=== PATIENT | male | born 1955 | race Caucasian/White ===

== ENCOUNTER → 2016-07-02 | Outpatient (CLI) | payer MEDICARE ==
[~2016-07-02] MED LIST: AMARYL2 MG PO; AMLODIPINE10 MG PO; ASPIRIN CHEWABL81 MG PO; AVODART0.5 MG PO; Amaryl2 MG PO; B12,B-12,B 12500 MC1 PO; CALCIUM + D 5001 TAB PO; CALCIUM 600600 MG PO; CALCIUM WITH D1 CTB PO; CELLCEPT250 MG PO; CLEOCIN150 MG PO; COLACE100 MG PO; CORDROL20 MG; COUMADIN2 MG PO; COUMADIN2.5 M1 PO; COUMADIN3 M1 PO; COUMADIN5 M2 PO; Cyclobenzaprine10 MG PO; D3-5050000 IU PO; DAYPRO600 M1 PO; DELTASONE10 MG PO; DELTASONE20 MG PO; DELTASONE5 MG PO; ELITE MAGNESIUM1 TAB PO; FE-TABS325 MG PO; FEOSOL300 MG PO; FEOSOL325 MG PO; FERROUS SULFAT325 MG PO; FINASTERIDE5 MG PO; FLOMAX0.4 MG PO; FLUCONAZOLE100 MG PO; GABAPENTIN100 M2 PO; HYDROCODONE BIT1 T11 PO; IBUPROFEN200 M2 PO; IMMURAN; IMURAN50 MG PO; IRON325 M1 PO; IRON65 M1 PO; IRON65 MG PO; LISINOPRIL5 MG PO; MAG-OX 400400 MG PO; METOPROLOL SR50 MG PO; MULTIPLE VITAMI1 CAP PO; NORCO 5-325 TA1 EACH PO; OMEPRAZOLE10 MG PO; ORASONE PO; ORASONE10 MG PO; PREDNISONE10 MG PO; PREDNISONE20 MG PO; ROBAXIN750 MG PO; SEPTRA DS 800 M1 TAB PO; TACROLIMUS1 M1 PO; TRAMADOL HCL50 MG PO; TRAMADOL50 MG PO; TYLENOL W/CODEI1 TA2 PO; ULTRAM100 MG PO; VALCYTE450 MG PO; VITAMIN D1000 IU PO; ZOFRAN4 MG PO
[2016-07-02 07:27] LABS: HEMATOCRIT 30.1 % (42.0-52.0); HEMOGLOBIN 9.3 g/dl (14.0-18.0); MEAN CELL VOLUME 90.7 fl (80.0-94.0); MEAN CORPUSCULAR HGB CONC 30.9 g/dl (33.0-37.0); PLATELET COUNT AUTOMATED 190 10*3/uL (130-400); RED BLOOD COUNT 3.32 10*6/uL (4.50-5.90); RED CELL DISTRI WIDTH 16.2 % (0-14.5); WHITE BLOOD COUNT 18.1 10*3/uL (4.8-10.8)
[2016-07-02 07:50] LABS: ALBUMIN 2.7 gm/dl (3.1-4.5); MAGNESIUM 1.6 mg/dL (1.5-2.1); PHOSPHOROUS 1.3 mg/dL (2.5-4.9); POTASSIUM 4.6 mmol/L (3.5-5.1)
[2016-07-02 08:40] LABS: LYMPHOCYTE # 0.5 10*3/uL (1.3-4.4); METAMYELOCYTES 3 % (0-0); MONOCYTE # 1.1 10*3/uL (0.1-1.0); MYELOCYTES 5 % (0-0); NEUTROPHILS 83 % (47-73); TOTAL CELLS COUNTED 100 #CELLS
[2016-07-02 08:41] LABS: PLATELET SUFFICIENCY NORMAL (NORMAL); POLYCHROMASIA SLIGHT
== END | disposition home or self-care (01) ==
LOC: LAB 07:04
PROVIDERS: Internal Medicine Nephrology
DX: Z41.8 Encounter for other procedures for purposes other than remedying health state (principal); Z48.298 Encounter for aftercare following other organ transplant; Z94.0 Kidney transplant status; N25.81 Secondary hyperparathyroidism of renal origin; E55.9 Vitamin D deficiency, unspecified; E78.5 Hyperlipidemia, unspecified

== ENCOUNTER → 2016-07-05 | Outpatient (CLI) | payer MEDICARE ==
[2016-07-05 07:22] LABS: HEMATOCRIT 30.7 % (42.0-52.0); HEMOGLOBIN 9.5 g/dl (14.0-18.0); MEAN CELL VOLUME 91.1 fl (80.0-94.0); MEAN CORPUSCULAR HGB 28.2 pg (27.0-31.0); MEAN CORPUSCULAR HGB CONC 30.9 g/dl (33.0-37.0); MEAN PLATELET VOLUME 8.9 fl (9.6-12.3); PLATELET COUNT AUTOMATED 157 10*3/uL (130-400); RED BLOOD COUNT 3.37 10*6/uL (4.50-5.90); WHITE BLOOD COUNT 14.9 10*3/uL (4.8-10.8)
[2016-07-05 07:38] LABS: LYMPHOCYTE # 0.6 10*3/uL (1.3-4.4); METAMYELOCYTES 1 % (0-0); MONOCYTE # 0.9 10*3/uL (0.1-1.0); MYELOCYTES 1 % (0-0); NEUTROPHIL # 13.1 10*3/uL (2.3-7.9); NEUTROPHILS 88 % (47-73); TOTAL CELLS COUNTED 100 #CELLS
[2016-07-05 07:39] LABS: PLATELET SUFFICIENCY NORMAL (NORMAL)
[2016-07-05 07:40] LABS: ALBUMIN 2.8 gm/dl (3.1-4.5); MAGNESIUM 1.6 mg/dL (1.5-2.1); PHOSPHOROUS 1.3 mg/dL (2.5-4.9); POLYCHROMASIA SLIGHT
== END | disposition home or self-care (01) ==
LOC: LAB 06:55
PROVIDERS: Internal Medicine Nephrology
DX: Z41.8 Encounter for other procedures for purposes other than remedying health state (principal); Z48.298 Encounter for aftercare following other organ transplant; Z94.0 Kidney transplant status; N25.81 Secondary hyperparathyroidism of renal origin; E55.9 Vitamin D deficiency, unspecified; E78.5 Hyperlipidemia, unspecified

== ENCOUNTER → 2016-07-12 | Outpatient (CLI) | payer MEDICARE ==
[2016-07-12 07:12] LABS: BASO % 0.1 % (0.0-1.0); EOS % 0.6 % (1.0-4.0); HEMATOCRIT 32.2 % (42.0-52.0); HEMOGLOBIN 9.8 g/dl (14.0-18.0); IG # 0.2 10*3/uL (0.0-0.1); LYMPH # 0.1 10*3/uL (1.3-4.4); LYMPH % 1.3 % (27.0-41.0); MEAN CELL VOLUME 93.6 fl (80.0-94.0); MEAN CORPUSCULAR HGB 28.5 pg (27.0-31.0); MEAN CORPUSCULAR HGB CONC 30.4 g/dl (33.0-37.0); MEAN PLATELET VOLUME 9.3 fl (9.6-12.3); MONO # 0.6 10*3/uL (0.1-1.0); MONO % 8.2 % (3.0-9.0); NEUT # 5.8 10*3/uL (2.3-7.9); NEUT % 86.8 % (47.0-73.0); PLATELET COUNT AUTOMATED 82 10*3/uL (130-400); RED BLOOD COUNT 3.44 10*6/uL (4.50-5.90); WHITE BLOOD COUNT 6.7 10*3/uL (4.8-10.8)
[2016-07-12 07:26] LABS: ALBUMIN 2.9 gm/dl (3.1-4.5); ALKALINE PHOSPHATASE 86 U/L (45-117); BILIRUBIN, DIRECT < 0.1 mg/dL (0.0-0.2); BILIRUBIN, TOTAL 0.3 mg/dl (0.2-1.0); BUN 32 mg/dl (7-24); CARBON DIOXIDE 20 mmol/L (21-32); CHLORIDE 111 mmol/L (98-107); EST GLOM FILT AFRICAN AMERICAN 57 ml/min; GLUCOSE 90 mg/dL (65-99); MAGNESIUM 1.5 mg/dL (1.5-2.1); PHOSPHOROUS 1.5 mg/dL (2.5-4.9); POTASSIUM 5.1 mmol/L (3.5-5.1); SGOT/AST 10 IU/L (3-35); SGPT/ALT 26 U/L (12-78); SODIUM 138 mmol/L (136-145); TOTAL PROTEIN 5.8 gm/dL (6.4-8.2)
== END | disposition home or self-care (01) ==
LOC: LAB 03:00
PROVIDERS: Internal Medicine Nephrology
DX: Z41.8 Encounter for other procedures for purposes other than remedying health state (principal); Z48.298 Encounter for aftercare following other organ transplant; N25.81 Secondary hyperparathyroidism of renal origin; E55.9 Vitamin D deficiency, unspecified; E78.5 Hyperlipidemia, unspecified; Z94.0 Kidney transplant status

== ENCOUNTER → 2016-08-30 | Outpatient (CLI) | payer MEDICARE ==
[2016-08-30 07:16] LABS: HEMATOCRIT 34.7 % (42.0-52.0); HEMOGLOBIN 10.8 g/dl (14.0-18.0); MEAN CELL VOLUME 91.8 fl (80.0-94.0); MEAN CORPUSCULAR HGB 28.6 pg (27.0-31.0); MEAN CORPUSCULAR HGB CONC 31.1 g/dl (33.0-37.0); MEAN PLATELET VOLUME 9.7 fl (9.6-12.3); PLATELET COUNT AUTOMATED 116 10*3/uL (130-400); RED BLOOD COUNT 3.78 10*6/uL (4.50-5.90); RED CELL DISTRI WIDTH 15.9 % (0-14.5); WHITE BLOOD COUNT 3.3 10*3/uL (4.8-10.8)
[2016-08-30 07:29] LABS: ALBUMIN 3.2 gm/dl (3.1-4.5); BUN 31 mg/dl (7-24); CARBON DIOXIDE 21 mmol/L (21-32); CHLORIDE 109 mmol/L (98-107); EST GLOM FILT AFRICAN AMERICAN > 60 ml/min; GLUCOSE 96 mg/dL (65-99); MAGNESIUM 1.9 mg/dL (1.5-2.1); POTASSIUM 4.4 mmol/L (3.5-5.1); SODIUM 141 mmol/L (136-145)
[2016-08-30 07:30] LABS: PHOSPHOROUS 1.7 mg/dL (2.5-4.9)
[2016-08-30 07:40] LABS: BASOPHILS 1 % (0-1); EOSINOPHILS 1 % (1-4); LYMPHOCYTE # 0.3 10*3/uL (1.3-4.4); METAMYELOCYTES 6 % (0-0); MONOCYTE # 0.2 10*3/uL (0.1-1.0); MYELOCYTES 12 % (0-0); NEUTROPHIL # 2.1 10*3/uL (2.3-7.9); NEUTROPHILS 65 % (47-73); OVALOCYTES FEW; PLATELET SUFFICIENCY LOW (NORMAL); TEAR DROP CELLS FEW; TOTAL CELLS COUNTED 100 #CELLS
== END | disposition home or self-care (01) ==
LOC: LAB 02:12
PROVIDERS: Internal Medicine Nephrology
DX: Z41.8 Encounter for other procedures for purposes other than remedying health state (principal); Z48.298 Encounter for aftercare following other organ transplant; N25.81 Secondary hyperparathyroidism of renal origin; E78.5 Hyperlipidemia, unspecified; E55.9 Vitamin D deficiency, unspecified; Z94.0 Kidney transplant status

== ENCOUNTER → 2016-09-03 | Outpatient (CLI) | payer MEDICARE ==
[2016-09-03 07:16] LABS: HEMOGLOBIN 10.5 g/dl (14.0-18.0); MEAN CELL VOLUME 90.4 fl (80.0-94.0); MEAN CORPUSCULAR HGB 28.8 pg (27.0-31.0); MEAN CORPUSCULAR HGB CONC 31.8 g/dl (33.0-37.0); MEAN PLATELET VOLUME 9.6 fl (9.6-12.3); PLATELET COUNT AUTOMATED 116 10*3/uL (130-400); RED BLOOD COUNT 3.65 10*6/uL (4.50-5.90); RED CELL DISTRI WIDTH 15.5 % (0-14.5); WHITE BLOOD COUNT 2.1 10*3/uL (4.8-10.8)
[2016-09-03 07:31] LABS: ALBUMIN 3.1 gm/dl (3.1-4.5); ALKALINE PHOSPHATASE 87 U/L (45-117); BILIRUBIN, DIRECT < 0.1 mg/dL (0.0-0.2); BILIRUBIN, TOTAL 0.3 mg/dl (0.2-1.0); BUN 28 mg/dl (7-24); CARBON DIOXIDE 22 mmol/L (21-32); CHLORIDE 112 mmol/L (98-107); EST GLOM FILT AFRICAN AMERICAN > 60 ml/min; GLUCOSE 89 mg/dL (65-99); PHOSPHOROUS 2.5 mg/dL (2.5-4.9); POTASSIUM 4.3 mmol/L (3.5-5.1); SGOT/AST 9 IU/L (3-35); SGPT/ALT 22 U/L (12-78); SODIUM 142 mmol/L (136-145)
[2016-09-03 07:35] LABS: BASOPHILS 2 % (0-1); EOSINOPHILS 1 % (1-4); LYMPHOCYTE # 0.5 10*3/uL (1.3-4.4); METAMYELOCYTES 10 % (0-0); MONOCYTE # 0.3 10*3/uL (0.1-1.0); MYELOCYTES 12 % (0-0); NEUTROPHIL # 0.8 10*3/uL (2.3-7.9); NEUTROPHILS 36 % (47-73); PLATELET SUFFICIENCY LOW (NORMAL); TEAR DROP CELLS FEW; TOTAL CELLS COUNTED 100 #CELLS
== END | disposition home or self-care (01) ==
LOC: LAB 06:59
PROVIDERS: Internal Medicine Nephrology
DX: Z41.8 Encounter for other procedures for purposes other than remedying health state (principal); Z48.298 Encounter for aftercare following other organ transplant; N25.81 Secondary hyperparathyroidism of renal origin; E55.9 Vitamin D deficiency, unspecified; E78.5 Hyperlipidemia, unspecified; Z94.0 Kidney transplant status

== ENCOUNTER → 2016-09-06 | Outpatient (CLI) | payer MEDICARE ==
[2016-09-06 07:17] LABS: HEMATOCRIT 34.8 % (42.0-52.0); HEMOGLOBIN 10.8 g/dl (14.0-18.0); MEAN CELL VOLUME 89.9 fl (80.0-94.0); MEAN CORPUSCULAR HGB 27.9 pg (27.0-31.0); PLATELET COUNT AUTOMATED 123 10*3/uL (130-400); RED BLOOD COUNT 3.87 10*6/uL (4.50-5.90); WHITE BLOOD COUNT 2.1 10*3/uL (4.8-10.8)
[2016-09-06 07:30] LABS: ALBUMIN 3.2 gm/dl (3.1-4.5); BUN 22 mg/dl (7-24); CARBON DIOXIDE 25 mmol/L (21-32); CHLORIDE 110 mmol/L (98-107); EST GLOM FILT AFRICAN AMERICAN > 60 ml/min; GLUCOSE 95 mg/dL (65-99); POTASSIUM 4.4 mmol/L (3.5-5.1); SODIUM 143 mmol/L (136-145)
[2016-09-06 07:31] LABS: PHOSPHOROUS 2.1 mg/dL (2.5-4.9)
[2016-09-06 07:38] LABS: EOSINOPHILS 2 % (1-4); LYMPHOCYTE # 0.4 10*3/uL (1.3-4.4); METAMYELOCYTES 12 % (0-0); MONOCYTE # 0.5 10*3/uL (0.1-1.0); MYELOCYTES 13 % (0-0); NEUTROPHIL # 0.7 10*3/uL (2.3-7.9); NEUTROPHILS 31 % (47-73); PLATELET SUFFICIENCY LOW (NORMAL); TEAR DROP CELLS FEW; TOTAL CELLS COUNTED 100 #CELLS
== END | disposition home or self-care (01) ==
LOC: LAB 03:17
PROVIDERS: Internal Medicine Nephrology
DX: Z41.8 Encounter for other procedures for purposes other than remedying health state (principal); Z48.298 Encounter for aftercare following other organ transplant; N25.81 Secondary hyperparathyroidism of renal origin; E78.5 Hyperlipidemia, unspecified; E55.9 Vitamin D deficiency, unspecified; Z94.0 Kidney transplant status

== ENCOUNTER → 2016-09-10 | Outpatient (CLI) | payer MEDICARE ==
[2016-09-10 07:16] LABS: HEMATOCRIT 33.3 % (42.0-52.0); HEMOGLOBIN 10.6 g/dl (14.0-18.0); MEAN CELL VOLUME 88.8 fl (80.0-94.0); MEAN CORPUSCULAR HGB 28.3 pg (27.0-31.0); MEAN CORPUSCULAR HGB CONC 31.8 g/dl (33.0-37.0); MEAN PLATELET VOLUME 9.5 fl (9.6-12.3); PLATELET COUNT AUTOMATED 145 10*3/uL (130-400); RED BLOOD COUNT 3.75 10*6/uL (4.50-5.90); RED CELL DISTRI WIDTH 14.7 % (0-14.5); WHITE BLOOD COUNT 2.8 10*3/uL (4.8-10.8)
[2016-09-10 07:30] LABS: MAGNESIUM 1.9 mg/dL (1.5-2.1); POTASSIUM 4.5 mmol/L (3.5-5.1)
[2016-09-10 07:40] LABS: EOSINOPHIL # 0.1 10*3/uL (0-0.4); EOSINOPHILS 2 % (1-4); LYMPHOCYTE # 0.4 10*3/uL (1.3-4.4); METAMYELOCYTES 10 % (0-0); MONOCYTE # 0.4 10*3/uL (0.1-1.0); MYELOCYTES 22 % (0-0); NEUTROPHILS 35 % (47-73); TOTAL CELLS COUNTED 100 #CELLS
[2016-09-10 07:41] LABS: OVALOCYTES FEW; PLATELET SUFFICIENCY NORMAL (NORMAL); TEAR DROP CELLS FEW
== END | disposition home or self-care (01) ==
LOC: LAB 04:35
PROVIDERS: Internal Medicine Nephrology
DX: Z48.298 Encounter for aftercare following other organ transplant (principal); Z41.8 Encounter for other procedures for purposes other than remedying health state; E55.9 Vitamin D deficiency, unspecified; N25.81 Secondary hyperparathyroidism of renal origin; E78.5 Hyperlipidemia, unspecified; Z94.0 Kidney transplant status

== ENCOUNTER 2016-09-16 03:45 | Emergency (ER) | payer MEDICARE ==
[~2016-09-16] VITALS: Ht 177.8 cm; Wt 108.9 kg
[2016-09-16 04:52] LABS: HEMATOCRIT 31.2 % (42.0-52.0); HEMOGLOBIN 9.3 g/dl (14.0-18.0); MEAN CELL VOLUME 93.7 fl (80.0-94.0); MEAN CORPUSCULAR HGB 27.9 pg (27.0-31.0); MEAN CORPUSCULAR HGB CONC 29.8 g/dl (33.0-37.0); MEAN PLATELET VOLUME 10.9 fl (9.6-12.3); NUCLEATED RED BLOOD CELL 0.1 10*3/uL (0.0-0.0); NUCLEATED RED BLOOD CELL 2.9 % (0.0-0.0); PLATELET COUNT AUTOMATED 138 10*3/uL (130-400); RED BLOOD COUNT 3.33 10*6/uL (4.50-5.90); RED CELL DISTRI WIDTH 14.5 % (0-14.5)
[2016-09-16 05:00] LABS: WHITE BLOOD COUNT 1.8 10*3/uL (4.8-10.8)
[2016-09-16 05:09] LABS: ALBUMIN 2.1 gm/dl (3.1-4.5); BILIRUBIN, TOTAL 0.4 mg/dl (0.2-1.0); POTASSIUM 3.7 mmol/L (3.5-5.1); TOTAL PROTEIN 5.5 gm/dL (6.4-8.2)
[2016-09-16 05:10] LABS: CKMB 1.6 ng/ml (0.5-3.6); TROPONIN I 0.044 ng/ml (<0.045)
[2016-09-16 05:14] LABS: INTERNATIONAL NORM RATIO 1.1 (2.0-3.5); PROTHROMBIN TIME 12.1 SECONDS (9.0-12.4)
[2016-09-16 05:19] LABS: ATYPICAL LYMPHS 2 % (0-0); BURR CELLS MANY; EOSINOPHILS 2 % (1-4); LYMPHOCYTE # 1.1 10*3/uL (1.3-4.4); METAMYELOCYTES 5 % (0-0); MONOCYTE # 0.3 10*3/uL (0.1-1.0); MYELOCYTES 1 % (0-0); NEUTROPHIL # 0.3 10*3/uL (2.3-7.9); NEUTROPHILS 14 % (47-73); PLATELET SUFFICIENCY NORMAL (NORMAL); TOTAL CELLS COUNTED 100 #CELLS
[2016-09-16 05:20] LABS: BILIRUBIN NEGATIVE (NEGATIVE); BLOOD 3+ (NEGATIVE); CLARITY SL CLOUDY (CLEAR); COLOR YELLOW (YELLOW); GLUCOSE NEGATIVE (NEGATIVE); KETONE TRACE (NEGATIVE); LEUKO ESTERASE TRACE (NEGATIVE); NITRITE NEGATIVE (NEGATIVE); PROTEIN 2+ (NEGATIVE); SPECIFIC GRAVITY >= 1.030 (1.005-1.030); UROBILINOGEN 0.2 E.U./dl (0.2-1.0)
[2016-09-16 05:20] LABS: MICROCYTOSIS SLIGHT
[2016-09-16 05:29] LABS: RBC 16-20 rbc/hpf (0-2); URINE REFLEX COMMENT YES (NO)
== END 2016-09-16 09:21 | disposition expired ==
LOC: ED 03:45
PROVIDERS: Emergency Medicine
DX: A41.9 Sepsis, unspecified organism (principal); N19 Unspecified kidney failure; I44.2 Atrioventricular block, complete; I21.3 ST elevation (STEMI) myocardial infarction of unspecified site; D61.818 Other pancytopenia; N39.0 Urinary tract infection, site not specified; Z88.6 Allergy status to analgesic agent; Z79.82 Long term (current) use of aspirin; Z79.899 Other long term (current) drug therapy